=== PATIENT | female | born 1945 ===

== ENCOUNTER → 2018-02-06 15:19 | Outpatient (REF) | payer MEDICARE, SELFPAY ==
[2018-02-06 16:13] LABS: INR 3.7 (0.9-1.3); Prothrombin Time 41.5 SECONDS (10.1-12.7)
== END ==
LOC: LAB 15:19
PROVIDERS: Visit Provider Internal Medicine
DX: I48.0 Paroxysmal atrial fibrillation (principal)
CPT/HCPCS: 85610

== ENCOUNTER → 2018-02-08 13:31 | Outpatient (REF) | payer MEDICARE, SELFPAY ==
[2018-02-08 13:39] LABS: INR 3.3 (0.9-1.3); Prothrombin Time 36.9 SECONDS (10.1-12.7)
== END ==
LOC: LAB 13:31
PROVIDERS: Visit Provider Internal Medicine
DX: I48.0 Paroxysmal atrial fibrillation (principal)
CPT/HCPCS: 85610

== ENCOUNTER → 2018-02-14 18:51 | Outpatient (REF) | payer MEDICARE, SELFPAY ==
[2018-02-14 19:33] LABS: INR 1.1 (0.9-1.3); Prothrombin Time 12.5 SECONDS (10.1-12.7)
== END ==
LOC: LAB 18:51
PROVIDERS: Visit Provider Student in an Organized Health Care Education/Training Program
DX: I48.0 Paroxysmal atrial fibrillation (principal)
CPT/HCPCS: 85610

== ENCOUNTER → 2018-02-20 19:00 | Outpatient (REF) | payer MEDICARE, SELFPAY ==
[2018-02-20 19:36] LABS: INR 1.6 (0.9-1.3); Prothrombin Time 17.9 SECONDS (10.1-12.7)
== END ==
LOC: LAB 19:00
PROVIDERS: Visit Provider Internal Medicine
DX: I48.2 Chronic atrial fibrillation (principal)
CPT/HCPCS: 85610

== ENCOUNTER → 2018-02-27 18:58 | Outpatient (REF) | payer MEDICARE, SELFPAY | LOC: LAB 18:58 | PROVIDERS: Visit Provider Internal Medicine | DX: I48.91 Unspecified atrial fibrillation (principal) | CPT/HCPCS: 36415 ==

== ENCOUNTER → 2018-02-28 18:54 | Outpatient (REF) | payer MEDICARE, SELFPAY ==
[2018-02-28 19:06] LABS: Prothrombin Time 44.9 SECONDS (10.1-12.7)
== END ==
LOC: LAB 18:54
PROVIDERS: Visit Provider Internal Medicine
DX: I48.91 Unspecified atrial fibrillation (principal)
CPT/HCPCS: 36415; 85610

== ENCOUNTER → 2018-03-01 18:56 | Outpatient (REF) | payer MEDICARE, SELFPAY ==
[2018-03-01 19:32] LABS: Prothrombin Time 33.2 SECONDS (10.1-12.7)
== END ==
LOC: LAB 18:56
PROVIDERS: Visit Provider Family Medicine
DX: I48.91 Unspecified atrial fibrillation (principal)
CPT/HCPCS: 85610

== ENCOUNTER → 2018-03-06 19:30 | Outpatient (REF) | payer MEDICARE, SELFPAY ==
[2018-03-06 20:19] LABS: INR 3.1 (0.9-1.3); Prothrombin Time 34.2 SECONDS (10.1-12.7)
== END ==
LOC: LAB 19:30
PROVIDERS: Visit Provider Internal Medicine
DX: I48.91 Unspecified atrial fibrillation (principal)
CPT/HCPCS: 36415; 85610

== ENCOUNTER → 2018-03-15 12:55 | Outpatient (REF) | payer MEDICARE, SELFPAY ==
[2018-03-15 13:42] LABS: INR 3.4 (0.9-1.3); Prothrombin Time 38.5 SECONDS (10.1-12.7)
== END ==
LOC: LAB 12:55
PROVIDERS: Internal Medicine Rheumatology; Visit Provider Internal Medicine
DX: I48.0 Paroxysmal atrial fibrillation (principal)
CPT/HCPCS: 85610

== ENCOUNTER → 2018-03-27 13:49 | Outpatient (REF) | payer MEDICARE, SELFPAY ==
[2018-03-27 14:18] LABS: INR 2.8 (0.9-1.3); Prothrombin Time 31.2 SECONDS (10.1-12.7)
== END ==
LOC: LAB 13:49
PROVIDERS: Visit Provider Internal Medicine
DX: I48.91 Unspecified atrial fibrillation (principal)
CPT/HCPCS: 85610

== ENCOUNTER → 2018-04-12 13:27 | Outpatient (REF) | payer MEDICARE, SELFPAY ==
[2018-04-12 13:44] LABS: INR 2.8 (0.9-1.3); Prothrombin Time 30.4 SECONDS (10.1-12.7)
== END ==
LOC: LAB 13:27
PROVIDERS: Visit Provider Internal Medicine
DX: I48.0 Paroxysmal atrial fibrillation (principal)
CPT/HCPCS: 85610

== ENCOUNTER → 2018-04-17 13:33 | Outpatient (REF) | payer MEDICARE, SELFPAY ==
[2018-04-17 13:45] LABS: Prothrombin Time 33.8 SECONDS (10.1-12.7)
== END ==
LOC: LAB 13:33
PROVIDERS: Visit Provider Internal Medicine
DX: I48.91 Unspecified atrial fibrillation (principal)
CPT/HCPCS: 85610

== ENCOUNTER → 2018-05-01 13:06 | Outpatient (REF) | payer MEDICARE, SELFPAY ==
[2018-05-01 13:44] LABS: INR 1.6 (0.9-1.3); Prothrombin Time 17.3 SECONDS (10.1-12.7)
== END ==
LOC: LAB 13:06
PROVIDERS: Visit Provider Internal Medicine
DX: I48.91 Unspecified atrial fibrillation (principal)
CPT/HCPCS: 85610

== ENCOUNTER → 2018-05-15 13:30 | Outpatient (REF) | payer MEDICARE, SELFPAY ==
[2018-05-15 15:37] LABS: INR 1.2 (0.9-1.3); Prothrombin Time 12.9 SECONDS (10.1-12.7)
== END ==
LOC: LAB 13:30
PROVIDERS: Visit Provider Internal Medicine
DX: I48.91 Unspecified atrial fibrillation (principal)
CPT/HCPCS: 85610

== ENCOUNTER → 2018-05-31 13:53 | Outpatient (REF) | payer MEDICARE, SELFPAY ==
[2018-05-31 14:06] LABS: INR 2.2 (0.9-1.3); Prothrombin Time 26.3 SECONDS (10.1-12.7)
== END ==
LOC: LAB 13:53
PROVIDERS: Visit Provider Internal Medicine
DX: I48.0 Paroxysmal atrial fibrillation (principal)
CPT/HCPCS: 36415; 85610

== ENCOUNTER → 2018-06-14 13:16 | Outpatient (REF) | payer MEDICARE, SELFPAY ==
[2018-06-14 13:58] LABS: INR 3.3 (0.9-1.3); Prothrombin Time 39.7 SECONDS (10.1-12.7)
== END ==
LOC: LAB 13:16
PROVIDERS: Visit Provider Internal Medicine
DX: I48.0 Paroxysmal atrial fibrillation (principal)
CPT/HCPCS: 36415; 85610

== ENCOUNTER → 2018-06-28 13:56 | Outpatient (REF) | payer MEDICARE, SELFPAY | LOC: LAB 13:56 | PROVIDERS: Visit Provider Internal Medicine | DX: I48.0 Paroxysmal atrial fibrillation (principal) | CPT/HCPCS: 36415 ==

== ENCOUNTER → 2018-06-29 13:56 | Outpatient (REF) | payer MEDICARE, SELFPAY ==
[2018-06-29 14:57] LABS: INR 1.3 (0.9-1.3); Prothrombin Time 15.1 SECONDS (10.1-12.7)
[2018-06-29 15:00] LABS: PTT Partial Thromboplastin Tim 31 SECONDS (26.4-36.2)
== END ==
LOC: LAB 13:56
PROVIDERS: Visit Provider Internal Medicine
DX: I48.0 Paroxysmal atrial fibrillation (principal)
CPT/HCPCS: 36415; 85610; 85730

== ENCOUNTER → 2018-07-17 13:21 | Outpatient (REF) | payer MEDICARE, SELFPAY ==
[2018-07-17 13:48] LABS: INR 2.5 (0.9-1.3); Prothrombin Time 28.7 SECONDS (10.1-12.7)
== END ==
LOC: LAB 13:21
PROVIDERS: Visit Provider Internal Medicine
DX: I48.91 Unspecified atrial fibrillation (principal)
CPT/HCPCS: 36415; 85610

== ENCOUNTER → 2018-08-07 13:35 | Outpatient (REF) | payer MEDICARE, SELFPAY ==
[2018-08-07 14:39] LABS: INR 2.6 (0.9-1.3); Prothrombin Time 30.3 SECONDS (10.1-12.7)
== END ==
LOC: LAB 13:35
PROVIDERS: Visit Provider Internal Medicine
DX: I48.0 Paroxysmal atrial fibrillation (principal)
CPT/HCPCS: 36415; 85610

== ENCOUNTER → 2018-08-23 14:20 | Outpatient (REF) | payer MEDICARE, SELFPAY ==
[2018-08-23 14:49] LABS: INR 1.4 (0.9-1.3); Prothrombin Time 15.8 SECONDS (10.1-12.7)
== END ==
LOC: LAB 14:20
PROVIDERS: Visit Provider Internal Medicine
DX: I48.0 Paroxysmal atrial fibrillation (principal)
CPT/HCPCS: 85610

== ENCOUNTER → 2018-09-04 15:19 | Outpatient (REF) | payer MEDICARE, SELFPAY ==
[2018-09-04 16:40] LABS: INR 2.4 (0.9-1.3); Prothrombin Time 28.5 SECONDS (10.1-12.7)
== END ==
LOC: LAB 15:19
PROVIDERS: Visit Provider Internal Medicine
DX: I48.0 Paroxysmal atrial fibrillation (principal)
CPT/HCPCS: 85610

== ENCOUNTER → 2018-09-06 14:06 | Outpatient (REF) | payer MEDICARE, SELFPAY ==
[2018-09-06 14:53] LABS: INR 2.8 (0.9-1.3); Prothrombin Time 32.4 SECONDS (10.1-12.7)
== END ==
LOC: LAB 14:06
PROVIDERS: Visit Provider Internal Medicine
DX: I48.91 Unspecified atrial fibrillation (principal)
CPT/HCPCS: 85610

== ENCOUNTER → 2018-09-27 13:25 | Outpatient (REF) | payer MEDICARE, SELFPAY ==
[2018-09-27 13:45] LABS: INR 3.6 (0.9-1.3); Prothrombin Time 43.4 SECONDS (10.1-12.7)
== END ==
LOC: LAB 13:25
PROVIDERS: Visit Provider Internal Medicine
DX: I48.0 Paroxysmal atrial fibrillation (principal)
CPT/HCPCS: 85610